=== PATIENT | male | born 1995 | race Two or more races ===

== ENCOUNTER 2024-04-12 14:19 | Inpatient (IN) | payer OTHER ==
[~2024-04-12] VITALS: Ht 167.6 cm; Wt 100.0 kg
[2024-04-12 15:28] LABS: BASOPHILS % (AUTO) 0.5 % (0.0-2.0); EOSINOPHILS % (AUTO) 6.2 % (1.0-6.0); HEMATOCRIT 41.7 % (41-53); HEMOGLOBIN 14.2 g/dL (13.5-17.5); LYMPHOCYTES # (AUTO) 1.9 K/uL (1.0-4.8); LYMPHOCYTES % (AUTO) 39.1 % (22.0-44.0); MEAN CORPUSCULAR HEMOGLOBIN 29.2 pg (26.0-34.0); MEAN CORPUSCULAR VOLUME 86 fL (80-100); MONOCYTES # (AUTO) 0.5 K/uL (0.1-1.0); NEUTROPHILS # (AUTO) 2.2 K/uL (1.8-7.7); NEUTROPHILS % (AUTO) 45.2 % (40.0-70.0); PLATELET COUNT (AUTO) 256 K/uL (150-450); RED BLOOD CELL COUNT(AUTO) 4.85 MIL/uL (4.50-5.90); RED CELL DISTRIBUTION WIDTH 14.1 % (11.5-14.5)
[2024-04-12 15:40] LABS: ANION GAP 8 mmol/L (8-16); CALCIUM, TOTAL 8.8 mg/dL (8.8-10.5); CARBON DIOXIDE 29 mmol/L (22-29); CHLORIDE 102 mmol/L (98-107); CREATININE 0.67 mg/dL (0.60-1.30); GLOMERULAR FILTR. RATE CALC > 60 mL/min (>60); GLUCOSE,RANDOM 119 mg/dL (70-110); POTASSIUM 4.5 mmol/L (3.5-5.1); SODIUM SERUM 139 mmol/L (136-145); UREA NITROGEN, BLOOD 16 mg/dL (7-18)
[2024-04-12 15:43] LABS: ALCOHOL, BLOOD (SERUM) < 3 mg/dL (0-10)
[2024-04-12 15:43] LABS: AMPHET/METH SCREEN,URINE NEGATIVE (NEGATIVE); BARBITURATE SCREEN, URINE NEGATIVE (NEGATIVE); BENZODIAZEPINES SCREEN,URINE NEGATIVE (NEGATIVE); CANNABINOID SCREEN,URINE NEGATIVE (NEGATIVE); COCAINE SCREEN,URINE NEGATIVE (NEGATIVE); METHADONE SCREEN, URINE NEGATIVE (NEGATIVE); OPIATE SCREEN,URINE NEGATIVE (NEGATIVE); PHENCYCLIDINE SCREEN,URINE NEGATIVE (NEGATIVE)
[2024-04-12 15:44] LABS: ALCOHOL, URINE DRUG SCREEN NEGATIVE (NEGATIVE)
[2024-04-12 15:46] LABS: ACETAMINOPHEN 31 mcg/mL (10-30); ALANINE AMINOTRANSFERASE 44 U/L (12-78); ALKALINE PHOSPHATASE 115 U/L (46-116); ASPARTATE AMINOTRANSFERASE 27 U/L (15-37); BILIRUBIN,TOTAL 0.4 mg/dL (0.1-1.0); TOTAL PROTEIN, SERUM 7.7 g/dL (6.4-8.2)
[2024-04-12 18:35] LABS: COVID AG,FIA SOURCE NASAL SWAB
[2024-04-12] MEDS ORDERED: BUPR1TAB46 SL ×2 (18:46)
[2024-04-12] MEDS ORDERED: HYDR30CR39 TP (18:46)
[2024-04-12] MEDS ORDERED: SALI325S2 TP (18:57)
[2024-04-12] MEDS ORDERED: PGLA4I IM (18:57)
[2024-04-12] MEDS ORDERED: MIRT-89 PO (18:57)
[2024-04-12] MEDS ORDERED: NORT25 PO (18:57)
[2024-04-12] MEDS ORDERED: ZOLPIDEM TARTRATE 5 MG TABLET PO PRN (19:00)
[2024-04-12] MEDS ORDERED: ONDANSETRON HCL 4 MG/2 ML VIAL IVP PRN (19:00)
[2024-04-12] MEDS ORDERED: IPRATROPIUM BROMIDE 0.5 MG/2.5 ML NEB SOLUTION NEB PRN (19:00)
[2024-04-12] MEDS ORDERED: ALBUTEROL SULFATE 2.5 MG/0.5 ML NEB SOLUTION NEB PRN (19:00)
[2024-04-12] MEDS ORDERED: BISACODYL 10 MG RECTAL RECTAL SUPPOSITORY PR PRN (19:00)
[2024-04-12] MEDS ORDERED: TAMS0.4C94 PO (19:01)
[2024-04-12 19:04] LABS: SARS-COV2 (COVID) ANTIGEN,FIA Negative (Negative)
[2024-04-12 19:19] LABS: SALICYLATE 0.8 mg/dL (2.8-20.0)
[2024-04-12 21:45] VITALS: BP 128/57; PULSE 79; RESP 19; TEMP 98.1
[2024-04-12 23:05] VITALS: BP 113/57; PULSE 60; RESP 19; TEMP 98
[2024-04-13] MEDS: HEPARIN SODIUM,PORCINE 5,000 UNITS/ML VIAL SQ SCH (00:24)
[2024-04-13 04:15] VITALS: BP 101/62; PULSE 62; RESP 19; TEMP 98.1
[2024-04-13 07:22] VITALS: BP 112/70; PULSE 63; RESP 20; TEMP 97.9
[2024-04-13] MEDS: PANTOPRAZOLE SODIUM 40 MG DR TABLET PO SCH (09:01)
[2024-04-13 10:46] VITALS: BP 126/88; PULSE 70; RESP 20; TEMP 98.2
[2024-04-13 15:15] VITALS: BP 134/88; PULSE 74; RESP 2; TEMP 97.7
[2024-04-13] MEDS: MAGNESIUM HYDROXIDE SUSPENSION 30 ML UDCUP PO PRN (18:21)
[2024-04-13 19:25] VITALS: BP 124/78; PULSE 70; RESP 20; TEMP 98.5
[2024-04-13] MEDS: ACETAMINOPHEN 325 MG TABLET PO PRN (21:19)
[2024-04-13 23:33] VITALS: BP 111/69; PULSE 78; RESP 20; TEMP 97.9
[2024-04-14 04:22] VITALS: BP 116/71; PULSE 69; RESP 20; TEMP 97.9
[2024-04-14 07:16] VITALS: BP 127/87; PULSE 71; RESP 20; TEMP 98.3
[2024-04-14 07:29] LABS: ANION GAP 6 mmol/L (8-16); CALCIUM, TOTAL 9.3 mg/dL (8.8-10.5); CARBON DIOXIDE 29 mmol/L (22-29); CHLORIDE 103 mmol/L (98-107); CREATININE 0.78 mg/dL (0.60-1.30); GLOMERULAR FILTR. RATE CALC > 60 mL/min (>60); GLUCOSE,RANDOM 111 mg/dL (70-110); SODIUM SERUM 138 mmol/L (136-145); UREA NITROGEN, BLOOD 13 mg/dL (7-18)
[2024-04-14 07:35] LABS: ALANINE AMINOTRANSFERASE 36 U/L (12-78); ALBUMIN 3.4 g/dL (3.4-5.0); ALKALINE PHOSPHATASE 106 U/L (46-116); ASPARTATE AMINOTRANSFERASE 25 U/L (15-37); BASOPHILS % (AUTO) 1.1 % (0.0-2.0); BILIRUBIN,TOTAL 0.3 mg/dL (0.1-1.0); EOSINOPHILS % (AUTO) 7.3 % (1.0-6.0); HEMATOCRIT 41.2 % (41-53); HEMOGLOBIN 14.1 g/dL (13.5-17.5); LYMPHOCYTES # (AUTO) 2.4 K/uL (1.0-4.8); LYMPHOCYTES % (AUTO) 54.4 % (22.0-44.0); MEAN CORPUSCULAR HEMOGLOBIN 29.3 pg (26.0-34.0); MEAN CORPUSCULAR HGB CONC 34.2 G/dL (31.0-37.0); MEAN CORPUSCULAR VOLUME 86 fL (80-100); MONOCYTES # (AUTO) 0.3 K/uL (0.1-1.0); MONOCYTES % (AUTO) 7.5 % (2.0-9.0); NEUTROPHILS # (AUTO) 1.3 K/uL (1.8-7.7); NEUTROPHILS % (AUTO) 29.7 % (40.0-70.0); PLATELET COUNT (AUTO) 225 K/uL (150-450); RED BLOOD CELL COUNT(AUTO) 4.82 MIL/uL (4.50-5.90); TOTAL PROTEIN, SERUM 7.2 g/dL (6.4-8.2); WHITE BLOOD COUNT (AUTO) 4.5 K/uL (4.5-11.0)
[2024-04-14 11:37] VITALS: BP 119/78; PULSE 74; RESP 20; TEMP 98.1
[2024-04-14 16:09] VITALS: BP 143/96; PULSE 67; RESP 20; TEMP 98.1
[2024-04-14] MEDS: BUPRENORPHINE HCL/NALOXONE HCL 8-2 MG SUBLINGUAL TABLET SL SCH (17:59)
[2024-04-14 19:38] VITALS: BP 120/71; PULSE 69; RESP 20; TEMP 98.2
[2024-04-14] MEDS: MIRTAZAPINE 15 MG TABLET PO SCH (20:12)
[2024-04-15 04:42] VITALS: BP 98/56; PULSE 65; RESP 18; TEMP 97.7
[2024-04-15 08:29] VITALS: BP 108/63; PULSE 67; RESP 18; TEMP 97.7
[2024-04-15 19:33] VITALS: BP 118/91; PULSE 89; RESP 18; TEMP 98.1
[2024-04-16 04:50] VITALS: BP 109/67; PULSE 78; RESP 18; TEMP 98.4
[2024-04-16 07:39] VITALS: BP 113/60; PULSE 71; RESP 18; TEMP 97.8
[2024-04-16 15:31] VITALS: BP 137/79; PULSE 88; RESP 18; TEMP 98.8
[2024-04-16 19:50] VITALS: BP 125/75; PULSE 87; RESP 18; TEMP 98
[2024-04-17 05:05] VITALS: BP 113/64; PULSE 89; RESP 18; TEMP 98.2
[2024-04-17 08:09] VITALS: BP 123/75; PULSE 91; RESP 18; TEMP 98.2
[2024-04-17 15:39] VITALS: BP 139/93; PULSE 99; RESP 18; TEMP 98.6
[2024-04-17 19:58] VITALS: BP 118/90; PULSE 92; RESP 18; TEMP 98.3
[2024-04-18 04:05] VITALS: BP 114/78; PULSE 78; RESP 18; TEMP 97.6
[2024-04-18 08:22] VITALS: BP 120/88; PULSE 72; RESP 18; TEMP 98
[2024-04-18 19:25] VITALS: BP 123/79; PULSE 97; RESP 18; TEMP 98.4
[2024-04-19 05:34] VITALS: BP 108/68; PULSE 82; RESP 18; TEMP 97.5
[2024-04-19 08:36] VITALS: BP 118/76; PULSE 78; RESP 19; TEMP 97.6
== END 2024-04-19 18:02 | DRG 918 ==
LOC: EMS 14:19 → 5S 21:41 → 6S 04-14 18:11
PROVIDERS: ADMIT Hospitalist; ATTEND Hospitalist
DX: T39.1X2A Poisoning by 4-Aminophenol derivatives, intentional self-harm, initial encounter (principal); R45.851 Suicidal ideations; T43.012A Poisoning by tricyclic antidepressants, intentional self-harm, initial encounter; T43.022A Poisoning by tetracyclic antidepressants, intentional self-harm, initial encounter; Z20.822 Contact with and (suspected) exposure to COVID-19; F32.A Depression, unspecified; F60.2 Antisocial personality disorder; F43.10 Post-traumatic stress disorder, unspecified; Z88.6 Allergy status to analgesic agent; Y92.89 Other specified places as the place of occurrence of the external cause; Z79.899 Other long term (current) drug therapy
CPT/HCPCS: 80053; 80307; 85025; 93005; 99291; G0480; G0481; J1644